=== PATIENT | female | born 1960 | race African-American/Black ===

== ENCOUNTER 2016-11-13 13:37 | Emergency (ER) | payer OTHER ==
[2016-11-13 11:15] LABS: BASOPHILS 0.9 %; BASOPHILS ABSOLUTE 0.03 10/3/uL (0.0-0.16); EOSINOPHILS 5.3 %; EOSINOPHILS ABSOLUTE 0.17 10/3/uL (0.0-0.53); ER CBC TAT 0 Hrs 08 Mins; HEMATOCRIT 38.5 % (36.0-48.0); HEMOGLOBIN 12.2 g/dL (12.0-16.0); LYMPHOCYTES 47.2 %; LYMPHOCYTES ABSOLUTE 1.51 10/3/uL (0.67-4.30); MANUAL DIFF NO %; MEAN CORPUS HGB CONC 31.7 g/dL (32.0-36.0); MEAN CORPUSCULAR HEMOGLOB 27.6 pg (26.0-34.0); MEAN CORPUSCULAR VOLUME 87.1 fL (80-100); MEAN PLATELET VOLUME 9.5 fL (9.2-13.0); MONOCYTES 12.5 %; NEUTROPHILS 34.1 %; NEUTROPHILS ABSOLUTE 1.09 10/3/uL (2.02-8.40); PLATELET COUNT 336 10/3/uL (150-400); RBC DISTRIBUTION WIDTH 14.6 % (12.0-16.0); RED CELL COUNT 4.42 10/6/uL (4.0-5.6); WHITE BLOOD CELLS 3.2 10/3/uL (4.5-10.5)
[2016-11-13 11:28] LABS: A/G RATIO 0.8 (0.7-1.9); ALBUMIN 3.5 G/DL (3.5-5.0); ALKALINE PHOSPHATASE 105 U/L (45-117); BUN (BLOOD UREA NITROGEN) 17 MG/DL (6-23); CALCIUM, SERUM 9.1 MG/DL (8.5-10.4); CHLORIDE, SERUM 101 MMOL/L (96-112); CO2 (CARBON DIOXIDE) 31 MMOL/L (24-34); CREATININE 0.87 MG/DL (0.55-1.02); GFR AFRICAN AMERICAN 87 ML/MIN (>=60); GFR NON AFRICAN AMERICAN 75 ML/MIN (>=60); GLOBULIN 4.6 G/DL (2.5-4.1); GLUCOSE, SERUM 62 MG/DL (60-99); POTASSIUM, SERUM 4.1 MMOL/L (3.5-5.3); SGOT(AST) 22 U/L (5-40); SGPT(ALT) 20 U/L (5-65); SODIUM, SERUM 137 MMOL/L (135-148); TOTAL BILIRUBIN 0.3 MG/DL (0-1.2); TOTAL PROTEIN 8.1 G/DL (6.0-8.5)
[2016-11-13 13:17] LABS: TROPONIN I <0.02 NG/ML (<0.05)
[~2016-11-13 13:37] MED LIST: ADVAIR INH; ADVAIR100 INH; DALIRESP500 MCG PO; FLEX PO; FLOVENT220 INH; MOBIC15 MG PO; NATURA2 OP; NORV25 PO; P20 PO; P5 PO; PROAIR HFA INH; PROVENT20 INH; PROVENTSOL INH; PULMICORT180 MCG INH; SINGULAIR1 PO; SINGULAIR5 MG PO; SPIRIVA INH; TYLENOL 8 HR650 MG PO; ZANAFLEX 4 MG TA4 MG PO
[2016-11-14 03:14] LABS: ALLENS TEST Pos; BE (BASE EXCESS) 0.4 MEQ/L (0 +/- 2.5); CARBOXYHEMOGLOBIN 1.3 % (0-3); HCO3 (ACTUAL BICARBONATE) 25.7 MEQ/L (23-27); INSTRUMENT SERIAL # 8087; METHEMOGLOBIN 0.2 % (0-3); O2 CONTENT 16.9 VOL% (18-24); PCO2 (CO2 TENSION) 44 MMHG (35-45); PO2 (O2 TENSION) 70 MMHG (79-93); SAMPLE Arterial; pH 7.38 (7.37-7.43)
== END 2016-11-13 14:30 | disposition home or self-care (01) ==
LOC: ER 13:37
PROVIDERS: Hospitalist; Nurse Practitioner Acute Care
DX: J44.1 Chronic obstructive pulmonary disease with (acute) exacerbation (principal); I10 Essential (primary) hypertension; F17.200 Nicotine dependence, unspecified, uncomplicated; Z88.0 Allergy status to penicillin; Z88.8 Allergy status to other drugs, medicaments and biological substances; Z79.52 Long term (current) use of systemic steroids; Z79.899 Other long term (current) drug therapy
CPT/HCPCS: 36600; 71020; 80053; 82805; 84484; 85025; 87040; 93005; 94640; 96372; 99284; J2930